=== PATIENT | female | born 2000 | race Caucasian/White ===

== ENCOUNTER 2020-01-26 18:42 | Observation (INO) ==
[2020-01-26 19:43] LABS: Bilirubin,Urine Negative (Negative); Blood,Urine Negative (Negative); Clarity,Urine Cloudy (Clear); Color,Urine Yellow (Yellow); Glucose,Urine (UA) Normal (Normal); Ketones,Urine Trace mg/dL (Negative); Leukocyte Esterase,Urine Small (Negative); Nitrite,Urine Negative (Negative); Protein,Urine Negative (Neg-Trace); Specific Gravity,Urine 1.021 (1.010-1.025); Urobilinogen,Urine Normal (Normal)
[2020-01-26 19:45] LABS: Bacteria,Urine Few per hpf (None-Few); Hyaline Casts,Urine None Seen per lpf (None-Few); Squamous Epithelial Cell,Urine Many per lpf (None-Few)
[2020-01-26 20:40] LABS: Candida DNA Not Detected (Not Detect); Gardnerella DNA Not Detected (Not Detect); Trichomonas DNA Not Detected (Not Detect)
== END 2020-01-26 21:00 | disposition home or self-care (01) ==
LOC: 1NENULAB
PROVIDERS: ADMIT Obstetrics & Gynecology; ATTEND Obstetrics & Gynecology

== ENCOUNTER → 2020-05-09 00:10 | Observation (INO) | END | disposition home or self-care (01) | LOC: 1NENULAB | PROVIDERS: ADMIT Obstetrics & Gynecology; ATTEND Obstetrics & Gynecology ==

== ENCOUNTER 2020-05-10 20:48 | Inpatient (IN) ==
[2020-05-10] MEDS ORDERED: Naloxone 0.4 MG/ML INJ IVP PRN ×2 (21:15→22:52)
[2020-05-10] MEDS ORDERED: Famotidine 20 MG/2 ML VIAL IVP PRN (21:15)
[2020-05-10] MEDS ORDERED: Ringers Solution, Lactated 1,000 ML IVC SCH (21:15)
[2020-05-10] MEDS ORDERED: *HR* FentaNYL (PF) 100 MCG/2 ML VIAL IVP PRN (21:15)
[2020-05-10] MEDS ORDERED: Ondansetron 4 MG/2 ML VIAL IVP PRN ×2 (21:15→22:52)
[2020-05-10] MEDS ORDERED: Metoclopramide 10 MG/2 ML VIAL IVP PRN (21:15)
[2020-05-10 21:56] LABS: Basophils % 0.4 %; Eosinophils # 0.1 K/mcL (0.0-0.6); Hematocrit 36.7 % (35.3-44.9); Hemoglobin 11.6 g/dL (11.5-15.4); Immature Granulocytes % 1.3 % (0-4); Immature Platelets 11.7 % (1.1-6.1); Lymphocytes # 1.6 K/mcL (0.6-4.6); Lymphocytes % 19.7 %; Mean Corpuscular HGB Conc 31.6 g/dL (31.6-35.5); Mean Corpuscular Hemoglobin 27.9 pg (28.0-33.3); Mean Corpuscular Volume 88.2 fL (83.0-100.0); Mean Platelet Volume 11.6 fL (9.4-12.4); Monocytes # 0.5 K/mcL (0.0-1.3); Monocytes % 6.4 %; Neutrophils # 5.7 K/mcL (1.6-8.9); Platelet Count 94 K/mcL (140-400); Red Blood Count 4.16 M/mcL (3.82-4.97); Segmented Neutrophils % 71.2 %
[2020-05-10 22:03] LABS: Amphetamine Screen,Urine Negative ng/mL (Cutoff=1000); Barbiturate Screen,Urine Negative ng/mL (Cutoff=200); Benzodiazepines Screen,Urine Negative ng/mL (Cutoff=200); Cannabinoid Screen,Urine Negative ng/mL (Cutoff = 50); Cocaine Screen,Urine Negative ng/mL (Cutoff= 300); Opiate Screen,Urine Negative ng/mL (Cutoff=300); Phencyclidine Screen,Urine Negative ng/mL (Cutoff=25)
[2020-05-10] MEDS ORDERED: Oxytocin 20 units/ LR 1000 mL 20 UNIT/1,000 ML BAG IVC SCH (22:45)
[2020-05-10] MEDS ORDERED: *HR* FentaNYL (PF) 100 MCG/2 ML VIAL EP ONE (22:52)
[2020-05-10] MEDS ORDERED: Ropivacaine/PF 0.2% 20 ML VIAL EP ONE (22:52)
[2020-05-10] MEDS ORDERED: EPHEDrine 50 MG/ML VIAL IVP PRN (22:52)
[2020-05-10] MEDS ORDERED: Epidural Premix (fent/bupiv) 110 ML EP SCH (23:00)
[2020-05-11] MEDS ORDERED: Ropivacaine/PF 0.2% 20 ML VIAL ONE (01:10)
[2020-05-11] MEDS ORDERED: Oxytocin 20 units/ LR 1000 mL 20 UNIT/1,000 ML BAG IVC SCH (12:03)
[2020-05-11] MEDS ORDERED: Acetaminophen 325 MG TABLET PO PRN (12:03)
[2020-05-11] MEDS ORDERED: Oxytocin 20 units/ LR 1000 mL 20 UNIT/1,000 ML BAG IVC ONE (12:03)
[2020-05-11] MEDS ORDERED: Benzocaine/Menthol 56 GM AEROSOL SPRAY TP PRN (12:37)
[2020-05-11] MEDS ORDERED: Benzocaine/Menthol 56 GM AEROSOL SPRAY TP ONE (12:40)
[2020-05-11] MEDS: Ibuprofen 600 MG TABLET PO PRN ×2 (12:54→20:37)
[2020-05-11] MEDS: Prenatal Vit/FA 1 EACH TABLET PO SCH (12:55)
[2020-05-11] MEDS ORDERED: Ondansetron 4 MG/2 ML VIAL IVP ONE (15:04)
[2020-05-12 07:52] VITALS: BP 107/71
[2020-05-12] MEDS: Ibuprofen 600 MG TABLET PO PRN (08:03)
[2020-05-12] MEDS: Prenatal Vit/FA 1 EACH TABLET PO SCH (08:04)
== END 2020-05-12 11:45 | disposition home or self-care (01) | DRG 542 ==
LOC: 1NENULAB → OBSVTOIN 20:48 → 1NENULAB 05-11 02:28 → 1NENUOBS 05-11 12:02
PROVIDERS: ADMIT Obstetrics & Gynecology; ATTEND Obstetrics & Gynecology

== ENCOUNTER 2021-12-16 17:11 | Observation (INO) ==
[2021-12-16 18:02] LABS: Bilirubin,Urine Negative (Negative); Blood,Urine Negative (Negative); Clarity,Urine Clear (Clear); Color,Urine Light-Yellow (Yellow); Glucose,Urine (UA) Normal (Normal); Ketones,Urine Negative (Negative); Leukocyte Esterase,Urine Negative (Negative); Nitrite,Urine Negative (Negative); PH,Urine 6.5 pH Units (5.0-8.0); Protein,Urine Trace mg/dL (Neg-Trace); Specific Gravity,Urine 1.022 (1.010-1.025); Urobilinogen,Urine Normal (Normal)
[2021-12-16 20:24] LABS: Candida DNA Not Detected (Not Detect); Gardnerella DNA Not Detected (Not Detect); Trichomonas DNA Not Detected (Not Detect)
== END 2021-12-16 19:52 | disposition home or self-care (01) ==
LOC: 1NENULAB
PROVIDERS: ADMIT Student in an Organized Health Care Education/Training Program; ATTEND Student in an Organized Health Care Education/Training Program

== ENCOUNTER → 2021-12-27 20:05 | Observation (INO) | END | disposition home or self-care (01) | LOC: 1NENULAB | PROVIDERS: ADMIT Advanced Practice Midwife; ATTEND Advanced Practice Midwife ==

== ENCOUNTER → 2022-01-31 16:47 | Observation (INO) ==
[2022-01-31 16:09] LABS: Bacteria,Urine Few per hpf (None-Few); Bilirubin,Urine Negative (Negative); Blood,Urine Negative (Negative); Clarity,Urine Clear (Clear); Color,Urine Light-Yellow (Yellow); Glucose,Urine (UA) Normal (Normal); Ketones,Urine Negative (Negative); Leukocyte Esterase,Urine Small (Negative); Mucus,Urine Few per lpf (None-Few); Nitrite,Urine Negative (Negative); PH,Urine 6.5 pH Units (5.0-8.0); Protein,Urine Negative (Neg-Trace); RBC,Urine 0-3 per hpf (0-3); Specific Gravity,Urine 1.015 (1.010-1.025); Squamous Epithelial Cell,Urine Few per hpf (None-Few); Urobilinogen,Urine Normal (Normal)
[2022-01-31 18:28] LABS: Candida DNA Not Detected (Not Detect); Gardnerella DNA Not Detected (Not Detect); Trichomonas DNA Not Detected (Not Detect)
== END | disposition home or self-care (01) ==
LOC: 1NENULAB
PROVIDERS: ADMIT Advanced Practice Midwife; ATTEND Advanced Practice Midwife

== ENCOUNTER 2022-02-12 01:02 | Observation (INO) ==
[2022-02-12] MEDS ORDERED: Betamethasone Acet/SodPhos 30 MG/5 ML VIAL IM SCH (01:30)
[2022-02-12 02:58] LABS: Bacteria,Urine Few per hpf (None-Few); Bilirubin,Urine Negative (Negative); Blood,Urine Negative (Negative); Clarity,Urine Clear (Clear); Color,Urine Light-Yellow (Yellow); Glucose,Urine (UA) Normal (Normal); Ketones,Urine 20 mg/dL (Negative); Leukocyte Esterase,Urine Moderate (Negative); Mucus,Urine Few per lpf (None-Few); Nitrite,Urine Negative (Negative); Protein,Urine Trace mg/dL (Neg-Trace); RBC,Urine 0-3 per hpf (0-3); Specific Gravity,Urine 1.021 (1.010-1.025); Squamous Epithelial Cell,Urine Moderate per hpf (None-Few); Urobilinogen,Urine Normal (Normal)
[2022-02-12] MEDS ORDERED: Ondansetron ODT 4 MG TAB.RAPDIS SL ONE (04:54)
== END 2022-02-12 06:50 | disposition home or self-care (01) ==
LOC: 1NENULAB
PROVIDERS: ADMIT Advanced Practice Midwife; ATTEND Advanced Practice Midwife

== ENCOUNTER 2022-02-12 22:05 | Observation (INO) ==
[2022-02-12] MEDS ORDERED: Betamethasone Acet/SodPhos 30 MG/5 ML VIAL IM SCH (22:30)
== END 2022-02-12 22:30 | disposition home or self-care (01) ==
LOC: 1NENULAB
PROVIDERS: ADMIT Registered Nurse; ATTEND Registered Nurse

== ENCOUNTER → 2022-02-19 16:40 | Observation (INO) ==
[2022-02-19 16:38] LABS: Bilirubin,Urine Negative (Negative); Blood,Urine Negative (Negative); Clarity,Urine Clear (Clear); Color,Urine Light-Yellow (Yellow); Glucose,Urine (UA) Normal (Normal); Ketones,Urine Negative (Negative); Leukocyte Esterase,Urine Negative (Negative); Nitrite,Urine Negative (Negative); PH,Urine 6.5 pH Units (5.0-8.0); Protein,Urine Negative (Neg-Trace); Specific Gravity,Urine 1.018 (1.010-1.025); Urobilinogen,Urine Normal (Normal)
[2022-02-19 16:39] LABS: Candida DNA Not Detected (Not Detect); Gardnerella DNA Not Detected (Not Detect); Trichomonas DNA Not Detected (Not Detect)
== END | disposition home or self-care (01) ==
LOC: 1NENULAB
PROVIDERS: ADMIT Advanced Practice Midwife; ATTEND Advanced Practice Midwife

== ENCOUNTER → 2022-02-26 16:30 | Observation (INO) ==
[2022-02-26 15:04] LABS: Bacteria,Urine Few per hpf (None-Few); Bilirubin,Urine Negative (Negative); Blood,Urine Negative (Negative); Clarity,Urine Clear (Clear); Color,Urine Light-Yellow (Yellow); Glucose,Urine (UA) Normal (Normal); Ketones,Urine Trace mg/dL (Negative); Leukocyte Esterase,Urine Moderate (Negative); Mucus,Urine Few per lpf (None-Few); Nitrite,Urine Negative (Negative); Protein,Urine 30 mg/dL (Neg-Trace); RBC,Urine 0-3 per hpf (0-3); Specific Gravity,Urine 1.027 (1.010-1.025); Squamous Epithelial Cell,Urine Moderate per hpf (None-Few); Urobilinogen,Urine Normal (Normal); WBC,Urine 30-50 per hpf (0-3)
[2022-02-26 15:22] LABS: Basophils % 0.2 %
[2022-02-26 15:24] LABS: Eosinophils % 0.8 %; Hematocrit 32.7 % (35.3-44.9); Hemoglobin 10.4 g/dL (11.5-15.4); Immature Granulocytes % 0.8 % (0-4); Lymphocytes % 18.1 %; Mean Corpuscular HGB Conc 31.8 g/dL (31.6-35.5); Mean Corpuscular Hemoglobin 28.9 pg (28.0-33.3); Mean Corpuscular Volume 90.8 fL (83.0-100.0); Mean Platelet Volume 12.6 fL (9.4-12.4); Monocytes # 0.4 K/mcL (0.0-1.3); Neutrophils # 3.9 K/mcL (1.6-8.9); Red Cell Distribution Width 14.1 % (11.5-14.5); Segmented Neutrophils % 73.1 %; White Blood Count 5.3 K/mcL (4.3-11.1)
[2022-02-26 15:25] LABS: Protein/Creatinine Ratio,Urine 0.13 mg/mg (0.00-0.20)
[2022-02-26 15:27] LABS: Platelet Count 92 K/mcL (140-400)
[2022-02-26 15:39] LABS: Alanine Aminotransferase 9 Units/L (7-52); Aspartate Amino Transferase 12 Units/L (13-39); BUN/Creatinine Ratio 13 (6-26); Blood Urea Nitrogen 6 mg/dL (6-20); Lactate Dehydrogenase 110 Units/L (140-271); Uric Acid 3.8 mg/dL (2.3-7.6); eGFR For African Americans > 60 (> 60); eGFR For Non-African Americans > 60 (> 60)
== END | disposition home or self-care (01) ==
LOC: 1NENULAB
PROVIDERS: ADMIT Registered Nurse; ATTEND Registered Nurse

== ENCOUNTER → 2022-03-11 01:08 | Observation (INO) ==
[2022-03-11 00:34] LABS: Bacteria,Urine Few per hpf (None-Few); Hyaline Casts,Urine Few per lpf (None Seen); Mucus,Urine Few per lpf (None-Few); RBC,Urine 0-3 per hpf (0-3); Squamous Epithelial Cell,Urine Few per hpf (None-Few)
[2022-03-11 00:35] LABS: Bilirubin,Urine Negative (Negative); Blood,Urine Negative (Negative); Clarity,Urine Clear (Clear); Color,Urine Light-Yellow (Yellow); Glucose,Urine (UA) Normal (Normal); Ketones,Urine 80 mg/dL (Negative); Leukocyte Esterase,Urine Moderate (Negative); Nitrite,Urine Negative (Negative); Protein,Urine Trace mg/dL (Neg-Trace); Specific Gravity,Urine 1.022 (1.010-1.025); Urobilinogen,Urine Normal (Normal)
== END | disposition home or self-care (01) ==
LOC: 1NENULAB
PROVIDERS: ADMIT Obstetrics & Gynecology; ATTEND Obstetrics & Gynecology

== ENCOUNTER 2022-04-01 03:49 | Inpatient (IN) ==
[2022-04-01] MEDS ORDERED: Famotidine 20 MG/2 ML VIAL IVP PRN (03:56)
[2022-04-01] MEDS ORDERED: Ondansetron 4 MG/2 ML VIAL IVP PRN (03:56)
[2022-04-01] MEDS ORDERED: Naloxone 0.4 MG/ML INJ IVP PRN (03:56)
[2022-04-01] MEDS ORDERED: Metoclopramide 10 MG/2 ML VIAL IVP PRN (03:56)
[2022-04-01] MEDS ORDERED: *HR* Nalbuphine 10 MG/ML AMPUL IV PRN (03:56)
[2022-04-01] MEDS ORDERED: Ringers Solution, Lactated 1,000 ML IVC SCH (04:00)
[2022-04-01] MEDS ORDERED: Oxytocin 30 UNIT/503 ML BAG IVC SCH ×2 (04:00→11:10)
[2022-04-01 04:47] LABS: Basophils % 0.2 %; Eosinophils % 0.9 %; Red Cell Distribution Width 14.4 % (11.5-14.5)
[2022-04-01 04:49] LABS: Hematocrit 34.5 % (35.3-44.9); Hemoglobin 11.1 g/dL (11.5-15.4); Immature Granulocytes % 0.9 % (0-4); Immature Platelets 14.3 % (1.1-6.1); Lymphocytes # 1.2 K/mcL (0.6-4.6); Lymphocytes % 25.8 %; Mean Corpuscular HGB Conc 32.2 g/dL (31.6-35.5); Mean Corpuscular Hemoglobin 28.2 pg (28.0-33.3); Mean Corpuscular Volume 87.6 fL (83.0-100.0); Mean Platelet Volume 12.4 fL (9.4-12.4); Monocytes # 0.3 K/mcL (0.0-1.3); Monocytes % 6.8 %; Red Blood Count 3.94 M/mcL (3.82-4.97); Segmented Neutrophils % 65.4 %; White Blood Count 4.6 K/mcL (4.3-11.1)
[2022-04-01 04:50] LABS: Platelet Count 87 K/mcL (140-400)
[2022-04-01 04:57] LABS: Amphetamine Screen,Urine Negative ng/mL (Cutoff=1000); Barbiturate Screen,Urine Negative ng/mL (Cutoff=200); Benzodiazepines Screen,Urine Negative ng/mL (Cutoff=200); Cannabinoid Screen,Urine Negative ng/mL (Cutoff = 50); Cocaine Screen,Urine Negative ng/mL (Cutoff= 300); Opiate Screen,Urine Negative ng/mL (Cutoff=300); Phencyclidine Screen,Urine Negative ng/mL (Cutoff=25)
[2022-04-01 05:18] LABS: Influenza A PCR Negative (Negative); Influenza B PCR Negative (Negative); Resp. Syncytial Virus PCR Negative (Negative)
[2022-04-01 05:19] LABS: SARS-CoV-2 by PCR (In House) Negative (Negative)
[2022-04-01] MEDS ORDERED: Bupivacaine-MPF 0.25% 10 ML VIAL ONE (05:49)
[2022-04-01] MEDS ORDERED: Epidural Premix (fent/bupiv) 110 ML EP ONE (05:51)
[2022-04-01] MEDS ORDERED: EPHEDrine 50 MG/ML VIAL IVP PRN (06:27)
[2022-04-01] MEDS ORDERED: Epidural Premix (fent/bupiv) 110 ML EP SCH (06:30)
[2022-04-01] MEDS ORDERED: Lanolin 7 G OINT...G. TP PRN (11:10)
[2022-04-01] MEDS ORDERED: Measles/Mumps/Rubella Vacc 0.5 ML VIAL SQ PRN (11:10)
[2022-04-01] MEDS ORDERED: Ondansetron ODT 4 MG TAB.RAPDIS SL PRN (11:10)
[2022-04-01] MEDS ORDERED: Benzocaine/Menthol 56 GM AEROSOL SPRAY TP PRN (11:10)
[2022-04-01] MEDS ORDERED: OXYTOCIN/RINGERS LACTATE 10 UNIT/166.6 ML BAG IVC ONE (11:10)
[2022-04-01] MEDS ORDERED: Rho Immune Globulin 1,500 UNIT SYRINGE IM PRN (11:10)
[2022-04-01] MEDS: Acetaminophen 325 MG TABLET PO SCH ×3 (11:22→19:50)
[2022-04-01] MEDS: Ibuprofen 600 MG TABLET PO SCH ×3 (11:23→19:50)
[2022-04-01] MEDS ORDERED: *HR* HYDROmorphone (PF) 1 MG/ML SYRINGE IVP ONE (12:06)
[2022-04-01] MEDS ORDERED: Lidocaine/EPI 1:200k 2% PF 20 ML VIAL INFILT ONE (12:14)
[2022-04-01] MEDS ORDERED: Lidocaine/EPI 1:200k 1% PF 10 ML VIAL ONE (12:18)
[2022-04-01] MEDS ORDERED: Tranexamic Acid 1,000 MG/100ML 1,000 MG/100 ML PIGGYBACK IVPB ONE (12:27)
[2022-04-01] MEDS ORDERED: *HR* Succinylcholine 200 MG/10 ML VIAL IVP ONE (12:32)
[2022-04-01] MEDS ORDERED: Lidocaine -MPF 2% 5 ML VIAL ONE (12:33)
[2022-04-01] MEDS ORDERED: Ringers Solution, Lactated 2,000 ML ONE (12:39)
[2022-04-01] MEDS ORDERED: Ondansetron 4 MG/2 ML VIAL ONE (13:04)
[2022-04-01 13:06] LABS: Basophils % 0.1 %; Eosinophils % 0.4 %; Hematocrit 29.5 % (35.3-44.9); Hemoglobin 9.7 g/dL (11.5-15.4); Immature Granulocytes % 0.4 % (0-4); Immature Platelets 15.3 % (1.1-6.1); Lymphocytes % 12.1 %; Mean Corpuscular HGB Conc 32.9 g/dL (31.6-35.5); Mean Corpuscular Hemoglobin 28.4 pg (28.0-33.3); Mean Corpuscular Volume 86.3 fL (83.0-100.0); Mean Platelet Volume 12.8 fL (9.4-12.4); Monocytes # 0.4 K/mcL (0.0-1.3); Monocytes % 5.6 %; Neutrophils # 6.4 K/mcL (1.6-8.9); Platelet Count 92 K/mcL (140-400); Red Blood Count 3.42 M/mcL (3.82-4.97); Segmented Neutrophils % 81.4 %; White Blood Count 7.9 K/mcL (4.3-11.1)
[2022-04-01] MEDS ORDERED: Promethazine 6.25 MG in Water for inj. (sterile) 20 ML IVPB PRN (13:57)
[2022-04-01] MEDS ORDERED: *HR* HYDROmorphone PF 0.5 MG/0.5 ML SYRINGE IVP PRN (13:57)
[2022-04-01] MEDS: Prenatal Vit/FA 1 EACH TABLET PO SCH (14:51)
[2022-04-01] MEDS: *HR* HYDROcodone/Acet 5/325 mg TABLET PO PRN (21:44)
[2022-04-02] MEDS: Acetaminophen 325 MG TABLET PO SCH ×4 (01:45→21:31)
[2022-04-02] MEDS: Ibuprofen 600 MG TABLET PO SCH ×4 (01:45→21:30)
[2022-04-02] MEDS: *HR* HYDROcodone/Acet 5/325 mg TABLET PO PRN ×4 (05:13→23:50)
[2022-04-02 05:28] LABS: Basophils % 0.2 %; Eosinophils % 0.4 %; Hematocrit 33.6 % (35.3-44.9); Hemoglobin 11.2 g/dL (11.5-15.4); Immature Granulocytes % 0.5 % (0-4); Lymphocytes # 1.8 K/mcL (0.6-4.6); Mean Corpuscular HGB Conc 33.3 g/dL (31.6-35.5); Mean Platelet Volume 13.4 fL (9.4-12.4); Monocytes # 0.5 K/mcL (0.0-1.3); Monocytes % 5.7 %; Platelet Count 101 K/mcL (140-400); Red Blood Count 3.86 M/mcL (3.82-4.97); Red Cell Distribution Width 14.7 % (11.5-14.5); Segmented Neutrophils % 74.2 %; White Blood Count 9.5 K/mcL (4.3-11.1)
[2022-04-02 05:30] LABS: Neutrophils # 7.1 K/mcL (1.6-8.9)
[2022-04-02] MEDS: Prenatal Vit/FA 1 EACH TABLET PO SCH (08:00)
[2022-04-02] MEDS: polyethylene glycoL 3350 17 GM POWD.PACK PO SCH (08:00)
[2022-04-02] MEDS ORDERED: LYSTEDA PO SCH ×2 (09:30→10:00)
[2022-04-02 11:03] VITALS: O2SAT 99
[2022-04-02] MEDS: LYSTEDA PO SCH ×2 (15:26→19:35)
[2022-04-03] MEDS: Ibuprofen 600 MG TABLET PO SCH (03:30)
[2022-04-03] MEDS: Acetaminophen 325 MG TABLET PO SCH (03:30)
[2022-04-03 07:35] VITALS: BP 106/71; PULSE 66; TEMP 97.9
[2022-04-03] MEDS: Prenatal Vit/FA 1 EACH TABLET PO SCH (08:10)
[2022-04-03] MEDS: polyethylene glycoL 3350 17 GM POWD.PACK PO SCH (08:10)
[2022-04-03] MEDS: *HR* HYDROcodone/Acet 5/325 mg TABLET PO PRN (08:10)
== END 2022-04-03 12:49 | disposition home or self-care (01) | DRG 560 ==
LOC: 1NENULAB 03:49 → 1NENUOBS 10:56
PROVIDERS: ADMIT Obstetrics & Gynecology; ATTEND Obstetrics & Gynecology